=== PATIENT | male | born 1960 | race Caucasian/White ===

== ENCOUNTER → 2020-06-10 | Outpatient (CLI) | payer OTHER | LOC: RAD 07:44 | DX: M47.816 Spondylosis without myelopathy or radiculopathy, lumbar region (principal); M25.78 Osteophyte, vertebrae ==

== ENCOUNTER → 2020-07-09 | Outpatient (CLI) | payer OTHER ==
[~2020-07-09] MED LIST: AMITRIPTYLINE H10 M1 PO; CRESTOR10 MG PO; FISH OIL 1,0001 EAC9 PO; LYRICA150 MG PO; MAGNESIUM250 M1 PO; VITAMIN D350 MC3 PO; ZOLOFT100 MG PO
== END ==
LOC: LAB 07:30
PROVIDERS: ATTEND Student in an Organized Health Care Education/Training Program
DX: Z01.818 Encounter for other preprocedural examination (principal); Z11.59 Encounter for screening for other viral diseases

== ENCOUNTER 2020-07-14 06:07 | Inpatient (IN) | payer OTHER ==
[2020-07-09 10:49] LABS: URINE BILIRUBIN NEGATIVE (Negative); URINE BLOOD NEGATIVE (Negative); URINE CLARITY CLEAR; URINE COLOR YELLOW; URINE GLUCOSE-RANDOM* NEGATIVE (Negative); URINE KETONES NEGATIVE (Negative); URINE LEUKOCYTES-REFLEX NEGATIVE (Negative); URINE NITRITE-REFLEX NEGATIVE (Negative); URINE PROTEIN (DIPSTICK) NEGATIVE (Negative); URINE SPECIFIC GRAVITY 1.025 (1.005-1.035); URINE UROBILINOGEN 0.2 E.U./dl (0.2-1.0)
[2020-07-09 10:50] LABS: ABSOLUTE NEUTROPHILS 3.4 thou/uL (1.4-8.2); BASOPHILS 1.1 % (0.0-2.0); EOSINOPHILS 2.4 % (0.0-3.0); HEMOGLOBIN 15.5 gm/dL (14.0-18.0); LYMPHOCYTES 34.2 % (24.0-44.0); MCH 31.1 pg (26.0-34.0); MCHC 33.7 g/dL (28.0-37.0); MCV 92.1 fL (80.0-100.0); MONOCYTES 7.3 % (1.0-8.0); PLATELET COUNT 189 thou/uL (150-400); RDW 14.1 % (10.5-14.5); WBC 6.1 thou/uL (4.0-11.0)
[2020-07-09 10:57] LABS: ALBUMIN 3.9 g/dL (3.4-5.0); CALCIUM 9.2 mg/dL (8.5-10.1); POTASSIUM 4.4 mmol/L (3.5-5.1); TOTAL BILIRUBIN 0.5 mg/dL (0.2-1.0)
[2020-07-09 11:06] LABS: APTT 28.2 Seconds (24.5-32.8); PROTIME 9.9 Seconds (9.3-11.4)
[2020-07-10 00:06] LABS: GLYCOHEMOGLOBIN (HGB A1C) 6.5 % (4.8-5.6)
--- NOTE | 2020-07-10 08:26 | EKG ---
[facility] [place] [address] ELECTROCARDIOGRAM REPORT Name: ANGELA PEREZ Room #: PRE IN ..#: [id number] Admission: Attend Phys: Andrew Holly MD Discharge: Date of : 58 Report #: [id number] THIS REPORT FOR: cc: Alex Cole Richard A. DO Lundgren, Craig H. MD [facility] THIS REPORT FOR: //name// [facility] Test Date: 2020-07-09 Test Time: 10:36:00 Pat Name: ANGELA PEREZ Department: Room: Gender: Bank Boss: SAJAN : 1960 Requested By: Andrew Holly Order Number: [id number] MD: Chris Flores Measurements Intervals [place] Rate: 56 P: 66 MI: 153 QRS: -11 QRSD: 107 T: 18 QT: 431 QTc: 416 Interpretive Statements Sinus bradycardia Otherwise normal tracing Baseline wander in lead(s) V6 No previous ECG available for comparison Electronically Signed On 07-10-2020 8:26:37 CDT by Chris Flores [email or web address] <ELECTRONICALLY SIGNED> By: Chris Flores MD, FAC 07/10/20 0826 1036 1036 Chris Flores MD, [facility] /EPI
[~2020-07-14] VITALS: Ht 188 cm; Wt 108.0 kg
[2020-07-14 07:40] VITALS: BP 124/83
--- NOTE | 2020-07-14 19:29 | NUR ---
PATIENT ADMITTED FROM OR WITH LUMBAR LAMINECTOMY,TELFA DRESSING TO LOW BACK WITH SMALL AMT. OF DRY BLOOD NOTED ON DRESSING. THIGH HIGH SERINA CASTANEDA, SCD'S. 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 NO C/O NAUSEA, REGULAR DIET TRAY ORDERED. PATIENT ASSISTED UP TO THE SIDE OF THE BED, URINATED WITH C/O SOME BURNING WHEN URINATING, BUT HAD PENA CATHTER IN PLACE DURING SURGERY, BUT WAS DISCONTINUED AFTER SURGERY. ADMISSION COMPLETED, REPORT GIVEN TO QUETA/RN.
[2020-07-14 20:00] VITALS: BP 97/64
--- NOTE | 2020-07-14 20:18 | NUR ---
Report given to ruddy SOLIZ.
--- NOTE | 2020-07-15 01:33 | NUR ---
ASSUMED PT CARE AT 1900.PT WAS OBSERVED LYING ON HIS L SIDE WATCHING TV.SERINA HOSE/SCD IN PLACE ON HIS BLE.DRSG ON HIS BACK WITH DRIED DRAINAGE.PT UP WITH ASSIST X1/GAIT BELT AND WALKER TO THE BR.PT STILL ON AIR VICE MARSHAL PUMP.CAPNOGRAPHY MONITOR IN PLACE.PT BREATHING EVEN AND UNLABORED. PT SITTING UP AT THE SIDE OF HIS BED BC HE STATED THAT HIS BACK WAS KILLING HIM LYING IN BED.CALL LIGHT WITHIN REACH.
[2020-07-15 04:30] VITALS: BP 114/63
[2020-07-15 06:04] LABS: ABSOLUTE NEUTROPHILS 7.2 thou/uL (1.4-8.2); BASOPHILS 0.3 % (0.0-2.0); EOSINOPHILS 0.7 % (0.0-3.0); HEMATOCRIT 43.1 % (42.0-52.0); HEMOGLOBIN 14.3 gm/dL (14.0-18.0); LYMPHOCYTES 15.2 % (24.0-44.0); MCH 30.8 pg (26.0-34.0); MCHC 33.2 g/dL (28.0-37.0); MCV 92.8 fL (80.0-100.0); MONOCYTES 8.8 % (1.0-8.0); PLATELET COUNT 190 thou/uL (150-400); RBC 4.64 mil/uL (4.50-6.00); RDW 13.9 % (10.5-14.5); WBC 9.6 thou/uL (4.0-11.0)
[2020-07-15 06:15] LABS: CALCIUM 8.8 mg/dL (8.5-10.1); POTASSIUM 4.6 mmol/L (3.5-5.1)
--- NOTE | 2020-07-15 09:14 | NUR ---
ASSESSMENT: CM REVIEWED CHART AND SPOKE WITH PATIENT. PT IS ALERT AND ORIENTED X4. PT IS HERE S/P LAMINECTOMY. PT REPORTS THAT HE LIVES IN A HOUSE WITH HIS AND TWO ADULT CHILDREN. PT REPORTS THAT HE HAS NO STEPS TO ENTER OR ONCE INSIDE. PT REPORTS HE NORMALLY AMBULATES USING A CANE BUT ALSO HAS A WALKER WTIH [facility]. PT REPORTS HE HAS NO HAD HH IN THE PAST AND DOES NOT ANTICIPATE NEEDING IT. THERAPY IS TO SEE PATIENT THIS AM. CM WILL CONTINE TO FOLLOW TO ASSIST NEEDED.
[2020-07-15] MEDS ORDERED: MIRALAX17 GM PO (11:11)
[2020-07-15] MEDS ORDERED: ROBAXIN 750 MG750 MG PO (11:11)
[2020-07-15] MEDS ORDERED: ACETAMINOPHEN325 M1 PO (11:11)
[2020-07-15] MEDS ORDERED: PERCOCET PO (11:11)
[2020-07-15 11:37] VITALS: BP 114/63
--- NOTE | 2020-07-15 12:15 | NUR ---
DC ORDERS RECIEVED. IV REMOVED. DC INSTRUCTIONS, SCRIPTS AND F/U APPOINTMENT REVIEWED WITH PT. PT ESCORTED TO MAIN ENTRANCE BY RAVINDRA.
--- NOTE | 2020-07-16 16:20 | O ---
[facility] [place] [address] OPERATIVE REPORT Name: ANGELA PEREZ Room #: 436-P [facility] IN M.R.#: [id number] Admission: 07/14/20 Attend Phys: Andrew Holly MD Discharge: 07/15/20 Date of : 58 Report #: [id number] THIS REPORT FOR: cc: Alex Cole,Andrew Vogel MD ~ CC: Andrew PANDA DATE OF SERVICE: 07/14/2020 PREOPERATIVE DIAGNOSES: Varying degrees of multilevel spinal stenosis, L2-L3 and L3-L4 recurrent at L4-L5 and L5-S1. The patient has both neurogenic claudicant type symptoms and radiculopathy. Also, low back pain. POSTOPERATIVE DIAGNOSES: Varying degrees of multilevel spinal stenosis, L2-L3 and L3-L4 recurrent at L4-L5 and L5-S1. The patient has both neurogenic claudicant type symptoms and radiculopathy. Also, low back pain. PROCEDURE: Redo bilateral laminectomy with partial facetectomy and neural foraminotomy of L4. Redo laminectomy with partial facetectomy and neural foraminotomy, bilateral L5. Redo bilateral laminectomy with partial facetectomy and neural foraminotomy S1. Bilateral laminectomy with partial facetectomy and neural foraminotomy of L2. Bilateral laminectomy with partial facetectomy and neural foraminotomy L3. Fluoroscopy. SURGEON: Andrew Holly MD CLAIMS SERVICE REPRESENTATIVE: ROSELYN Shah ANESTHESIA: General via endotracheal tube. INDICATIONS: The patient has had intractable back and bilateral leg pain in a radicular distribution. The patient also has components of neurogenic claudication. The patient proved refractory to multimodality conservative management. The patient also had ganglions bilaterally at the L4-L5 level. The patient having proved refractory to multimodality conservative management and being progressively debilitated by this condition, he requested we proceed with surgery. The patient understood the risks of surgery to be , DVT, pulmonary embolism, paraplegia, loss of bowel and bladder function, loss of sexual function, possibility of bleeding, bleeding requiring transfusion, transfusion attendant risks of AIDS and hepatitis infection, instability the need for revision and prolonged hospital stay, dural leak, spinal headache, infection and [address] [address] OPERATIVE REPORT Name: ANGELA PEREZ Rebecca Room #: 436-P [facility] IN .R.#: [id number] Admission: 07/14/20 Attend Phys: Andrew Holly MD Discharge: 07/15/20 Date of : 58 Report #: [id number] again he requested we proceed. DESCRIPTION OF PROCEDURE: The patient was brought to the operating room and administered general anesthesia via endotracheal tube. Lower extremities were treated with SERINA hose and intermittent compression stockings. The patient was positioned on the Daren table in the prone position with all bony prominences padded appropriately. Care was taken to ensure the shoulders not abducted more than 90 degrees, the elbows flexed more than 90 degrees and there was no undue pressure in the cubital or carpal canals. The area of the anterior superior iliac spine was well padded to protect the lateral femoral cutaneous nerve. Hips and knees were well padded and there was no pressure on the dorsum of the feet. The patient's low back was defatted with alcohol and visualized under fluoroscopy for the first of serial fluoroscopic visualizations. The pedicles of L2 through S1 were marked on the patient's back for surgical reference. This required fluoroscopic exposure and interpretation by the operating surgeon. With the levels known and the skin marked, we were then able to sterilely prep and drape, infiltrate the skin with 0.5% Marcaine, 1:200,000 epinephrine and sharp dissection was continued down through the skin and subcutaneous tissues, but only after perioperative antibiotics had been administered. As we neared the area of previous surgery from L4 to sacrum, we encountered scar permanent sutures, which were removed. We then performed a subperiosteal exposure of L2-L3 and then performed redo decompression at L4, L5 and S1. When complete, we were able to set our deep self-retaining retractors. We removed the spinous processes of L2 and L3. Then, we used a high-speed drill as we started at L2 and thinned the lamina of L2, leaving a centimeter bridge of pars laterally. We thinned L2 to the anterior cortex. As we neared the anterior cortex, we could get it to the point where we could almost see through it. We then moved to L3 and performed exactly the same procedure. At L4, L5, and S1, we removed margin of bone to allow further lateral dissection to ensure a very aggressive neural foraminal decompressions. This was done while protecting the dural sac. With the lamina was thinned, we then used micro curettes to separate the ligamentum flavum from the undersurface of the lamina at L2 and L3 and then these laminas were resected until we had a wide central decompression as we progressed. Then, we began cephalad on the right and began removing more lamina, ligament and performed partial facetectomies and eventually neural foraminal decompressions of the L2, L3, L4, L5 and S1 nerve roots. We marched down the spinal canal from right cephalad to caudad removing the ligament, which seemed to be the major offending structure. At times, the partial facetectomies were the most prominent sources of compression. We also found ganglions at L4-L5 bilaterally and these required significant dissection to free them from the spinal sac and the exiting nerve root for which they were attached. They were then resected. With a ganglion resection was complete and the partial facetectomies complete, the neural foraminal decompressions leaving the nerve roots completely free on the right, we moved to the left side, which being performed exactly the same procedure. We widened our decompression by removing lamina, performing partial facetectomies, ligament resection, and neural foraminal decompressions until the [facility] [address] [place] [address] OPERATIVE REPORT Name: ANGELA PEREZ Room #: 436-P [facility] IN ..#: [id number] Admission: 07/14/20 Attend Phys: Andrew Holly MD Discharge: 07/15/20 Date of : 58 Report #: [id number] L2 and L3 roots were completely free. The L4, L5, and S1 roots were done in redo fashion for the scarred dura from the lamina with microcurettes before resection with a Kerrison. With the lamina was free at the edge of the dural sac, we then performed the partial facetectomies, the ligament resection. We did check the disk at L2-L3 on the right. It was bulging minimally and after the wide decompression, there was no evidence of significant focal intrusion or pressure on the spinal sac or nerve root. We therefore did not have to violate the disk at L2-L3. When complete, we had decompressions from L2 to the sacrum. It was completely decompressed centrally, lateral recess, and neural foraminally. We had maintained a centimeter of pars at all levels. We did obtain serial fluoroscopy views during the case just to ensure we were at the appropriate levels as it was significantly distorted with the previous laminectomy and scar. The patient was then irrigated with a liter of antibiotic-containing solution. We then placed pledgets, thrombin-soaked Gelfoam over the spinal canal. We closed the deep fascial layer with 0 Ethibond in [id number] interrupted fashion, deep subQ with 0 Vicryl, superficial subcutaneous 2-0 Vicryl. Stainless steel lizette were used for the skin closure. We used Xeroform sterile dressing sponges and a bioclusive and it was applied. Final blood loss was 130 mL. There were no technical misadventures. The patient was physiologically stable throughout. There was no specimen and the decompression at all levels were proven under serial fluoroscopy views. All nerve roots probed completely free at the completion of the procedure. <ELECTRONICALLY SIGNED> By: Andrew Holly MD 07/16/20 1620 1105 1222 Andrew Holly MD /nt
== END 2020-07-15 12:58 | disposition home or self-care (01) | DRG 517 ==
LOC: TBA 06:07 → 4S 06:07 → PRE 07:30 → 4S 15:32
PROVIDERS: Nurse Practitioner
PROC: 01NB0ZZ Release Lumbar Nerve, Open Approach (ICD-10-PCS; principal; 2020-07-14)
PROC: 01NR0ZZ Release Sacral Nerve, Open Approach (ICD-10-PCS; principal; 2020-07-14)
DX: M51.17 Intervertebral disc disorders with radiculopathy, lumbosacral region (principal); I10 Essential (primary) hypertension; E78.5 Hyperlipidemia, unspecified; F32.9 Major depressive disorder, single episode, unspecified; G62.9 Polyneuropathy, unspecified; M48.07 Spinal stenosis, lumbosacral region; Z98.1 Arthrodesis status; Z90.49 Acquired absence of other specified parts of digestive tract; Z87.891 Personal history of nicotine dependence
CPT/HCPCS: 10102; 50010; 50101; 50402; 50850; 51412; 51878; 56524; 56528; 62110; 62900; 70005

== ENCOUNTER → 2020-11-06 | Outpatient (CLI) | payer OTHER ==
[~2020-11-06] MED LIST changes: +ACETAMINOPHEN325 M1 PO; +MIRALAX17 GM PO; +PERCOCET PO; +ROBAXIN 750 MG750 MG PO
== END ==
LOC: MRI 08:01
DX: M51.24 Other intervertebral disc displacement, thoracic region (principal); M50.30 Other cervical disc degeneration, unspecified cervical region; M25.78 Osteophyte, vertebrae; M43.22 Fusion of spine, cervical region; M48.061 Spinal stenosis, lumbar region without neurogenic claudication